=== PATIENT | female | born 1965 | race Asian ===

== ENCOUNTER → 2024-09-06 | Day surgery (SDC) | payer BC, OTHER | END | disposition home or self-care (01) | LOC: FMAMMOTONE 10:25 | PROC: 0HBT3ZX Excision of Right Breast, Percutaneous Approach, Diagnostic (ICD-10-PCS; principal; 2024-09-06) | DX: N60.11 Diffuse cystic mastopathy of right breast (principal); N60.31 Fibrosclerosis of right breast; N60.81 Other benign mammary dysplasias of right breast; N60.91 Unspecified benign mammary dysplasia of right breast; R92.0 Mammographic microcalcification found on diagnostic imaging of breast | CPT/HCPCS: 19081; 76098-TC-FY; 88305-TC; 88342-TC ==

== ENCOUNTER 2024-10-31 06:54 | Day surgery (SDC) | payer BC, OTHER ==
[2024-10-25 12:31] VITALS: BMI 29.2
[2024-10-31] MEDS ORDERED: BUPIVACAINE HCL/PF 0.5% (5MG/ML) 10 ML VIAL ONE (07:04)
[2024-10-31] MEDS ORDERED: LIDOCAINE 1%/EPI 1:100000 (20 ML MULTI DOSE VIAL) ONE (09:01)
[2024-10-31] MEDS ORDERED: GUM MASTIC/STORAX/MSAL/ALCOHOL 1 DRP DROPSBTL MC ONE (09:02)
[2024-10-31] MEDS ORDERED: LIDOCAINE HCL/PF 2% SDV 5ML VIAL ONE (09:03)
[2024-10-31] MEDS ORDERED: MIDAZOLAM HCL 2 MG/2 ML SINGLE DOSE VIAL ONE (09:03)
[2024-10-31] MEDS ORDERED: PROPOFOL 40 ML ONE (09:03)
[2024-10-31] MEDS ORDERED: ONDANSETRON 4 MG/2 ML VIAL IVPUSH PRN (09:24)
[2024-10-31] MEDS ORDERED: oxyCODONE HCL 5 MG TABLET PO PRN ×2 (09:24)
[2024-10-31] MEDS ORDERED: LACTATED RINGERS SOLUTION 1,000 ML IV SCH (09:30)
[2024-10-31] MEDS ORDERED: ceFAZolin SODIUM 1 GM VIAL ONE (09:41)
[2024-10-31] MEDS: LIDOCAINE 1%/EPI 1:100000 (20 ML MULTI DOSE VIAL) IJ ONE (09:47)
[2024-10-31] MEDS ORDERED: BUPIVACAINE HCL/PF 0.25% (2.5MG/ML) 10 ML VIAL ONE (10:00)
[2024-10-31] MEDS: BUPIVACAINE HCL/PF 0.25% (2.5MG/ML) 10 ML VIAL IJ ONE (10:03)
[2024-10-31] MEDS ORDERED: KETOROLAC TROMETHAMINE 30 MG/1 ML VIAL ONE (10:05)
[2024-10-31 12:00] VITALS: RESP 18
[2024-10-31 12:02] VITALS: BP 121/57; PULSE 66; TEMP 98
== END 2024-10-31 12:00 | disposition home or self-care (01) ==
LOC: FASU 06:54
PROVIDERS: ATTEND Surgery Surgical Oncology
PROC: 0HBT0ZX Excision of Right Breast, Open Approach, Diagnostic (ICD-10-PCS; principal; 2024-10-31 09:48)
DX: N60.91 Unspecified benign mammary dysplasia of right breast (principal); N60.31 Fibrosclerosis of right breast; N62 Hypertrophy of breast; N60.11 Diffuse cystic mastopathy of right breast; N64.89 Other specified disorders of breast
CPT/HCPCS: 76098-TC-FY; 82962; 88307-TC; 88342-TC; 94760